=== PATIENT | male | born 1975 | race Caucasian/White ===

== ENCOUNTER → 2017-11-15 09:39 | Outpatient (CLI) | payer OTHER, SELFPAY ==
--- NOTE | 2017-11-15 09:42 | XR_ITS ---
XR ankle LT min 3V HISTORY: ITS.REASON: L ankle pain ORDERING PHYSICIAN: William Mccord PATIENT AGE: 42 years Comparison: None FINDINGS: No fracture or dislocation. No lytic or blastic change. There is normal mineralization.. The joint spaces are well-preserved. No significant degenerative/arthritic changes. No erosive changes evident. IMPRESSION: Negative ankle, no acute finding
== END ==
PROVIDERS: PCP Emergency Medicine; Visit Provider Nurse Practitioner Family
DX: M25.472 Effusion, left ankle (principal); M25.572 Pain in left ankle and joints of left foot
CPT/HCPCS: 73610

== ENCOUNTER → 2018-05-09 13:21 | Outpatient (CLI) | payer OTHER, SELFPAY ==
[2018-05-09 13:37] LABS: Basophils % 0.9 % (0.1-2.0); Eosinophils # 0.1 K/mm3 (0.0-0.4); Eosinophils % 2.8 % (0.1-12.0); Hematocrit 52.7 % (42.0-52.0); Hemoglobin 17.9 g/dL (14.1-18.0); Lymphocytes % 41.1 % (10-50); Mean Corpuscular HGB Conc 33.9 g/dL (31.8-35.4); Mean Corpuscular Hemoglobin 32.6 pg (27.0-31.2); Mean Corpuscular Volume 96.1 fl (80-94); Mean Platelet Volume 7.8 fl (7.4-10.4); Monocytes # 0.4 K/mm3 (0.1-1.0); Monocytes % 8.7 % (1.7-9.3); Neutrophils # 2.3 K/mm3 (1.8-7.8); Neutrophils % 46.5 % (37.0-80.0); Platelet Count 244 K/mm3 (142-424); Red Blood Count 5.48 M/mm3 (4.60-6.20); Red Cell Distribution Width 13.5 % (11.5-17.5); White Blood Count 4.8 K/mm3 (4.8-10.8)
[2018-05-09 14:07] LABS: Alanine Aminotransferase 37 U/L (12-78); Albumin/Globulin Ratio 1.3 (1.1-1.8); Alkaline Phosphatase 71 U/L (46-116); Anion Gap 12.3 mEq/L (5-15); Aspartate Amino Transferase 23 U/L (15-37); Bilirubin,Total 0.6 mg/dL (0.2-1.0); Blood Urea Nitrogen 15 mg/dL (7-18); Calcium 9.4 mg/dL (8.5-10.1); Carbon Dioxide 30 mmol/L (21.0-32.0); Chloride 103 mmol/L (98-107); Chol/HDL Ratio 3.2 (1-3.5); Cholesterol 151 mg/dL (140-200); Creatinine,Serum 1.08 mg/dL (0.70-1.30); Estimated Glomerular Filt Rate 75 ml/min (>60); GFR (African American) 91 ML/MIN (>60); Globulin 3.2 gm/dl (1.3-3.2); Glucose 98 mg/dL (74-106); HDL Cholesterol 47 mg/dL (27-67); LDL Cholesterol 97 mg/dL (0-130); Potassium 4.3 mmoL/L (3.5-5.1); Sodium 141 mmol/L (136-145); T4 (Thyroxine) 9.2 ug/dl (4.7-13.3); Thyroid Stimulating Hormone 1.62 uIU/ml (0.358-3.740); Total Protein,Serum 7.2 gm/dL (6.4-8.2); Triglycerides 35 mg/dL (30-200); VLDL Cholesterol 7 mg/dL (0-40)
[2018-05-10 07:55] LABS: Vitamin D 25 Hydroxy 26.2 ng/mL (30.0-100.0)
[2018-05-10 08:46] LABS: Vitamin B12 1262 pg/mL (232-1245)
[2018-05-12 08:48] LABS: Testosterone,Free 7.3 pg/mL (6.8-21.5)
== END ==
PROVIDERS: Visit Provider Physician Assistant
DX: R53.83 Other fatigue (principal); E55.9 Vitamin D deficiency, unspecified
CPT/HCPCS: 80053; 80061; 82607; 82652; 84402; 84436; 84443; 85025

== ENCOUNTER 2020-04-17 17:49 | Emergency (ER) | payer MEDICAID, SELFPAY ==
[2020-04-17 17:50] VITALS: BP 136/80; PULSE 69; RESP 19; TEMP 36.8; O2SAT 98; BMI 34.4
--- NOTE | 2020-04-17 18:11 | HMH.EDUTC ---
[facility] [place]ression: Abscess Disposition: Home, Self-Care Condition on Discharge: Good Instructions: Trimethoprim/Sulfamethoxazole (Alternative Therapy), Mupirocin, DI for Skin Abscess Additional Instructions: *Start antibiotic(s) immediately and be sure to take as ordered for the FULL length of time although you may be feeling better or start to see improvement in the next 24-48 hours *Monitor closely. Outlined redness so that you can monitor easier. Follow up immediately for new or worsening symptoms including but not limited to redness, swelling, streaking from site fever or chills. *Warm compress 15 minutes 3-4 times day *Never squeeze or pop these on your own. Seek immediate medical attention next time this occurs *Monitor Temp. Tylenol every 4 hours as needed and ibuprofen every 6 hours as needed (as long as your primary care doctor has told you that it is ok to take both. For fever, aches, pain. ER if no less that 101 despite Tylenol and ibuprofen Follow up with your family doctor/primary care physician in the next 48-72 hours if no improvement Wound culture was obtained and should be back in 48 hours make sure to follow up or call back to the [facility] to make sure that you are on correct medication Return if needed Straight to ER if any life threatening symptoms Prescriptions: Sulfamethoxazole/Trimethoprim [Bactrim DS tablet] 1 each PO BID 10 Days #20 tab Transmission Status: Pending to [facility] Mupirocin Calcium [Mupirocin 2% Cream 15gm] 1 applicatio TP TID 10 Days #1 tube Transmission Status: Pending to [facility] Referrals: Ashley Hutchinson PA [Primary Care Provider] - As needed Time of Disposition: 18:20 Medical Decision Making - Maynor Inquiry Pt receiving controlled substance: No Maynor was queried for this patient: No Vital Signs: 04/17/20 17:50 Temperature 98.2 F Temperature Source Oral Pulse Rate [Right Brachial] 69 Respiratory Rate 19 Blood Pressure [Right Arm] 136/80 Blood Pressure Mean [Right Arm] 98 Blood Pressure Source [Right Arm] Automatic Cuff Blood Pressure Position [Right Arm] Sitting 02 Sat by Pulse Oximetry 98 Oxygen Delivery Method Room Air Orders (Tests/Meds): ED MEDICATIONS Discontinued Medications Generic Name Dose Route Start Last Admin Trade Name Freq PRN Reason Stop Dose Admin Trimethoprim/Sulfamethoxazole 1 each 04/17/20 18:21 Sulfa/Trimethoprim 1 Tablet PO 04/17/20 18:22 ONCE ONE Protocol ORDERS Category Date Time Status Wound Culture and Gram Stain Stat Micro 04/17/20 18:19 [place] [facility] [place] - General Stated complaint: spot on stomach infected Time Seen by Provider: 04/17/20 18:11 Mode of Arrival: Ambulatory Source of Information: Patient Limitations: No Limitations Description of Symptoms (Recalled from Triage Doc. by RN): PATIENT C/O SORE ON ABDOMEN X 3 WEEKS HEENT Symptoms (Recalled from RN notes): No Resp Symptoms (Recalled from RN notes): No Skin Symptoms (Recalled from RN notes): Yes MS Symptoms (Recalled from RN notes): No Functional Status (Recalled from RN notes): wnl - History of Present Illness Provider Complaint: Patient states that he had a spot on his stomach for about a week States that he popped it last night and go some pus out of it but today it looked bigger and was red so he came in to get it checked - Related Data Previous Rx's Medication Instructions Recorded Mupirocin Calcium [Mupirocin 2% 1 applicatio TP TID 10 Days #1 tube 04/17/20 Cream 15gm] Sulfamethoxazole/Trimethoprim 1 each PO BID 10 Days #20 tab 04/17/20 [Bactrim DS tablet] Allergies Allergy/AdvReac Type Severity Reaction Status Date / Time Penicillins [PENICILLINS] Allergy Severe THROAT Verified 07/27/19 10:35 SWELLING - Worker's Comp Is this a Worker's Comp case?: No [facility] History - Hepatitis A Screen Drug use history?: No High risk sexual behaviors?: No Histo
[2020-04-17 18:23] VITALS: BP 136/80; PULSE 69; RESP 19; TEMP 36.8; O2SAT 98
== END 2020-04-17 18:25 | disposition home or self-care (01) ==
PROVIDERS: Emergency Provider Nurse Practitioner; PCP Physician Assistant
DX: L02.211 Cutaneous abscess of abdominal wall (principal); Z88.0 Allergy status to penicillin; F17.210 Nicotine dependence, cigarettes, uncomplicated
CPT/HCPCS: 87070; 87077; 87186; 87205; 99202; G0463

== ENCOUNTER 2020-06-10 18:32 | Emergency (ER) | payer MEDICAID, SELFPAY ==
--- NOTE | 2020-06-10 18:50 | ECG_ITS ---
APPROVED REPORT Exam: Resting ECG HR:65 bpm ECG Measurements Heart Rate 65 AXES VT 132 P 18 QRSd 98 QRS 1 QT 388 T 52 QTc 403 Conclusion Normal sinus rhythm Normal ECG Electronically signed by : Jimmie Fonseca, 06/11/2020 17:34:50
[2020-06-10 18:56] VITALS: BP 137/83; PULSE 67; RESP 18; TEMP 36.8; O2SAT 97; BMI 30.8
--- NOTE | 2020-06-10 18:56 | HMH.EDGENADL ---
ED Disposition Clinical Impression: Seizure-like activity Headache Qualifiers: Headache type: unspecified Headache chronicity pattern: episodic headache Intractability: not intractable Qualified Code(s): R51.9 - Headache, unspecified Disposition: Home, Self-Care Condition on Discharge: Good Instructions: DI for Headache Additional Instructions: Follow-up with neurology, Dr. Adhikari. Call for appointment. You can see Dr. Geller in the office tomorrow at 10 AM or 1 PM. Additional instructions for HEADACHE: See your physician as soon as possible for further evaluation. Return immediately if worsening headache, vomiting, problems with vision or speech, fever, numbness or weakness of the extremities, neck pain or stiffness. Referrals: Ashley Hutchinson PA [Primary Care Provider] - - Critical Care Critical Care Time: No Attestation: On 06/10/20, the high probability of a clinically significant, sudden or life threatening deterioration of the following system(s) required my full and direct attention, intervention and personal management. The time I documented below is in addition to time spent performing reported procedures but includes the following listed in this critical care notation. Medical Decision Making - Maynor Inquiry Pt receiving controlled substance: No Vital Signs: 06/10/20 18:56 Temperature 98.3 F Temperature Source Oral Pulse Rate [Right] 67 Respiratory Rate 18 Blood Pressure [Right Arm] 137/83 Blood Pressure Mean [Right Arm] 101 02 Sat by Pulse Oximetry 97 Oxygen Delivery Method Room Air - Lab Data Lab Results 06/10/20 19:35: WBC 8.3, RBC 5.39, Hgb 17.5, Hct 51.0, MCV 94.5 H, MCH 32.5 H, MCHC 34.4, RDW 13.9, Plt Count 269, MPV 7.1 L, Neut % (Auto) 51.4, Lymph % (Auto) 38.6, [place] % (Auto) 6.9, Eos % (Auto) 2.3, Baso % (Auto) 0.7, Neut # (Auto) 4.3, Lymph # (Auto) 3.2, [place] # (Auto) 0.6, Eos # (Auto) 0.2, Baso # (Auto) 0.1 06/10/20 19:35: Sodium 138, Potassium 3.8, Chloride 104, Carbon Dioxide 26, Anion Gap 11.8, BUN 14, Creatinine 1.00, Estimated Creat Clear 129, Estimated GFR 81, Est GFR ( Amer) 98, Glucose 99, Calcium 9.6, Total Bilirubin 0.4, AST 35, ALT 32, Alkaline Phosphatase 69, Troponin I < 0.01, Total Protein 7.3, Albumin 4.5, Globulin 2.8, Albumin/Globulin Ratio 1.6 Result diagrams: 06/10/20 19:35 06/10/20 19:35 Orders (Tests/Meds): ED MEDICATIONS Discontinued Medications Generic Name Dose Route Start Last Admin Trade Name Freq PRN Reason Stop Dose Admin Ketorolac Tromethamine 30 mg 06/10/20 19:11 06/10/20 19:32 Ketorolac 30mg/Ml Vial IV 06/10/20 19:12 30 mg ONCE ONE Administration ORDERS Category Date Time Status CT head/brain wo con Stat Cat Scan 06/10/20 19:09 Taken Chest XR 2 view (NOT portable) [XR chest 2V] Stat Exams 06/10/20 19:10 Taken Troponin I Q3H Lab 06/10/20 22:15 Ordered Troponin I Q3H Lab 06/11/20 01:15 Ordered - Radiology Data #1 Image(s): Chest Image Reviewed: Yes I reviewed the patient's radiology image Preliminary Findings: Normal/NAD - CT Data CT Scan: Head Time Received: 19:54 ([facility] fax) ED CT Reviewed: Yes: I have viewed the radiologist's interpretation Preliminary Findings: Normal/NAD - ECG Data Tracing #1 EKG interpreted by Roderick Chance MD: Rhythm: sinus Rate: 65 [place]: normal Ectopy: none Conduction: normal ST Segment Changes: none T Wave Changes: none Q Waves: none No evidence of acute ischemia or injury Normal electrocardiogram - Reevaluation(s) Time: 20:16 Reevaluation #1: States he still has a headache. Slight improvement with Toradol, but declines any additional pain medication. Does not want any prescriptions for pain medication at discharge, says he will take [id number] medicines. General Adult HPI - General Stated complaint: barger, NOT FEELING GOOD Time Seen by Provider: 06/10/20 19:05 - History of Present Illness HPI narrative: Complain
--- NOTE | 2020-06-10 19:09 | CT_ITS ---
PROCEDURE: CT HEAD/BRAIN WO CON CLINICAL INDICATION: headache, seizure-like episodes COMPARISON: No exams were available for comparison TECHNIQUE: Axial images obtained. All CT scans at the facility use one or more dose reduction, viz: automated exposure control, ma/kV adjustment per patient size (including targeted exams where dose is matched to indication, i.e. head), or iterative reconstruction technique. FINDINGS: No midline shift, mass effect, intracranial hemorrhage, hydrocephalus, or extra-axial fluid collection is evident. The calvarium has an unremarkable appearance. No mastoid effusion. No sinus air-fluid level. IMPRESSION: No acute intracranial finding Dictated by: Jarad Fabian MD 06/11/2020 06:42 Jarad Fabian MD in [place] 06/11/2020 06:42
--- NOTE | 2020-06-10 19:10 | XR_ITS ---
PROCEDURE: XR CHEST 2V CLINICAL HISTORY: L periscapular pain COMPARISON: No exams were available for comparison FINDINGS: The cardiomediastinal silhouette and pulmonary vascularity are within normal limits. The lungs are clear without infiltrates, suspicious nodules, or pleural effusions. No acute bony abnormalities. IMPRESSION: No acute findings. Dictated by: Jarad Fabian MD 06/11/2020 06:03 Jarad Fabian MD in [place] 06/11/2020 06:03
[2020-06-10 20:00] LABS: Basophils # 0.1 K/mm3 (0-0.2); Basophils % 0.7 % (0.1-2.0); Eosinophils # 0.2 K/mm3 (0.0-0.4); Eosinophils % 2.3 % (0.1-12.0); Hemoglobin 17.5 g/dL (14.1-18.0); Lymphocytes # 3.2 K/mm3 (0.7-4.5); Lymphocytes % 38.6 % (10-50); Mean Corpuscular HGB Conc 34.4 g/dL (31.8-35.4); Mean Corpuscular Hemoglobin 32.5 pg (27.0-31.2); Mean Corpuscular Volume 94.5 fl (80-94); Mean Platelet Volume 7.1 fl (7.4-10.4); Monocytes # 0.6 K/mm3 (0.1-1.0); Monocytes % 6.9 % (1.7-9.3); Neutrophils # 4.3 K/mm3 (1.8-7.8); Neutrophils % 51.4 % (37.0-80.0); Platelet Count 269 K/mm3 (142-424); Red Blood Count 5.39 M/mm3 (4.60-6.20); Red Cell Distribution Width 13.9 % (11.5-17.5); White Blood Count 8.3 K/mm3 (4.8-10.8)
[2020-06-10 20:07] LABS: Chloride 104 mmol/L (98-107); Sodium 138 mmol/L (136-145)
[2020-06-10 20:08] LABS: Potassium 3.8 mmoL/L (3.5-5.1)
[2020-06-10 20:10] LABS: Alanine Aminotransferase 32 U/L (12-78); Albumin Level 4.5 g/dl (3.5-5.0); Albumin/Globulin Ratio 1.6 (1.1-1.8); Alkaline Phosphatase 69 U/L (38-126); Anion Gap 11.8 mEq/L (5-15); Aspartate Amino Transferase 35 U/L (17-59); Bilirubin,Total 0.4 mg/dl (0.2-1.3); Blood Urea Nitrogen 14 mg/dl (9-20); Carbon Dioxide 26 mmol/L (22.0-30.0); Creatinine Clearance Estimated 129 mL/min (50-200); Estimated Glomerular Filt Rate 81 ml/min (>60); GFR (African American) 98 ML/MIN (>60); Globulin 2.8 g/dL (1.3-3.2); Total Protein,Serum 7.3 g/dl (6.3-8.2)
[2020-06-10 20:11] LABS: Calcium 9.6 mg/dl (8.4-10.2); Glucose 99 mg/dl (74-100)
[2020-06-10 20:30] LABS: Troponin I < 0.01 ng/ml (0.00-0.034)
[2020-06-10 20:38] VITALS: BP 132/78; PULSE 72; RESP 17; TEMP 36.8; O2SAT 99
== END 2020-06-10 20:46 | disposition home or self-care (01) ==
LOC: UTC 18:36 → ER 18:47
PROVIDERS: Emergency Provider Emergency Medicine; PCP Physician Assistant
DX: R56.9 Unspecified convulsions (principal); R51.9 Headache, unspecified; M54.6 Pain in thoracic spine; F17.210 Nicotine dependence, cigarettes, uncomplicated
CPT/HCPCS: 70450; 71046; 80053; 84484; 85025; 93005; 96374; 96375; 99282

== ENCOUNTER → 2020-06-25 13:26 | Outpatient (CLI) | payer MEDICAID, SELFPAY ==
--- NOTE | 2020-06-25 13:26 | MR_ITS ---
PROCEDURE: MR HEAD/BRAIN WO CON CLINICAL INDICATION: headache COMPARISON: No exams were available for comparison TECHNIQUE: Routine multiplanar multi echo sequences are performed without gadolinium enhancement. FINDINGS: No midline shift, mass effect, intracranial hemorrhage, or hydrocephalus is evident. The cerebellopontine angles, cerebellum, and mid brain have an unremarkable appearance. There are a few small punctate T2 white matter hyperintensities in the frontal lobes, parietal lobes, and left occipital lobe. These are nonspecific and may be due to ischemic gliotic foci or migraine headache. The pituitary, optic chiasm, corpus callosum, and craniocervical junction have an unremarkable appearance. No mastoid effusion or sinus air-fluid level. IMPRESSION: 1. No acute intracranial findings. 2. Nonspecific scattered T2 white matter hyperintensities which may be due to small gliotic foci versus migraine headache. Demyelinating process felt to be less likely due to distribution and morphological appearance Dictated by: Jarad Fabian MD 06/25/2020 18:02 Jarad Fabian MD in [place] 06/25/2020 18:02
== END ==
PROVIDERS: PCP Physician Assistant; Visit Provider Physician Assistant
DX: R51.9 Headache, unspecified (principal); R56.9 Unspecified convulsions
CPT/HCPCS: 70551; 95806

== ENCOUNTER → 2020-06-28 09:28 | Outpatient (CLI) | payer MEDICAID, SELFPAY ==
[2020-06-28 09:40] LABS: Basophils # 0.1 K/mm3 (0-0.2); Basophils % 0.9 % (0.1-2.0); Eosinophils # 0.2 K/mm3 (0.0-0.4); Eosinophils % 2.8 % (0.1-12.0); Hematocrit 52.6 % (42.0-52.0); Hemoglobin 17.5 g/dL (14.1-18.0); Mean Corpuscular HGB Conc 33.3 g/dL (31.8-35.4); Mean Corpuscular Hemoglobin 32.2 pg (27.0-31.2); Mean Corpuscular Volume 96.7 fl (80-94); Mean Platelet Volume 7.1 fl (7.4-10.4); Monocytes # 0.5 K/mm3 (0.1-1.0); Monocytes % 8.9 % (1.7-9.3); Neutrophils # 3.2 K/mm3 (1.8-7.8); Neutrophils % 53.3 % (37.0-80.0); Platelet Count 259 K/mm3 (142-424); Red Blood Count 5.43 M/mm3 (4.60-6.20); Red Cell Distribution Width 13.2 % (11.5-17.5)
[2020-06-28 10:32] LABS: Alanine Aminotransferase 32 U/L (12-78); Albumin Level 4.4 g/dl (3.5-5.0); Albumin/Globulin Ratio 1.7 (1.1-1.8); Alkaline Phosphatase 77 U/L (38-126); Anion Gap 11.6 mEq/L (5-15); Aspartate Amino Transferase 30 U/L (17-59); Bilirubin,Total 0.7 mg/dl (0.2-1.3); Blood Urea Nitrogen 14 mg/dl (9-20); Calcium 9.5 mg/dl (8.4-10.2); Carbon Dioxide 27 mmol/L (22.0-30.0); Chloride 105 mmol/L (98-107); Chol/HDL Ratio 3.9 (1-3.5); Cholesterol 157 mg/dl (140-200); Estimated Glomerular Filt Rate 81 ml/min (>60); GFR (African American) 98 ML/MIN (>60); Globulin 2.6 g/dL (1.3-3.2); Glucose 92 mg/dl (74-100); HDL Cholesterol 40 mg/dl (40-60); Potassium 4.6 mmoL/L (3.5-5.1); Sodium 139 mmol/L (136-145); Triglycerides 81 mg/dl (30-150); VLDL Cholesterol 16 mg/dL (0-40)
[2020-06-28 10:44] LABS: Direct LDL Cholesterol 103.12 mg/dL (100-129)
[2020-06-28 10:50] LABS: 25-OH Vitamin D, Total 36.4 ng/mL (30-100); T4 (Thyroxine) 10.6 ug/dl (5.53-11.0)
[2020-06-28 11:04] LABS: Thyroid Stimulating Hormone 1.41 uIU/mL (0.465-4.68)
[2020-06-28 11:22] LABS: Vitamin B12 968 pg/mL (239-931)
== END ==
PROVIDERS: Visit Provider Physician Assistant
DX: R51.9 Headache, unspecified (principal); R56.9 Unspecified convulsions; Z68.34 Body mass index [BMI] 34.0-34.9, adult
CPT/HCPCS: 36415; 80053; 80061; 82306; 82607; 84436; 84443; 85025

== ENCOUNTER → 2020-08-13 16:16 | Outpatient (CLI) | payer MEDICAID, SELFPAY | PROVIDERS: Visit Provider Specialist | DX: Z01.812 Encounter for preprocedural laboratory examination (principal); Z11.52 Encounter for screening for COVID-19 | CPT/HCPCS: U0003 ==

== ENCOUNTER → 2020-08-13 20:06 | Outpatient (CLI) | payer MEDICAID, SELFPAY | PROVIDERS: PCP Physician Assistant; Visit Provider Specialist | DX: G47.30 Sleep apnea, unspecified (principal); R51.9 Headache, unspecified; R56.9 Unspecified convulsions; E66.9 Obesity, unspecified; Z68.34 Body mass index [BMI] 34.0-34.9, adult | CPT/HCPCS: 95810 ==

== ENCOUNTER → 2020-08-26 11:49 | Outpatient (CLI) | payer MEDICAID, SELFPAY ==
[2020-09-05 08:43] LABS: AChR Binding Abs <.03; AChR Blocking Abs 18
[2020-09-05 08:44] LABS: Anti-Striation (muscle) Abs NEGATIVE
== END ==
PROVIDERS: Specialist; Visit Provider Nurse Practitioner Family
DX: R51.9 Headache, unspecified (principal); H53.8 Other visual disturbances
CPT/HCPCS: 36415; 84238; 86255; 86618

== ENCOUNTER → 2020-11-04 18:46 | Outpatient (CLI) | payer MEDICAID, SELFPAY ==
[2020-11-04 20:06] LABS: Uric Acid 4.8 mg/dl (3.5-8.5)
== END ==
PROVIDERS: Visit Provider Nurse Practitioner Family
DX: M79.676 Pain in unspecified toe(s) (principal)
CPT/HCPCS: 84550

== ENCOUNTER → 2021-02-03 10:57 | Outpatient (CLI) | payer MEDICAID, SELFPAY ==
[2021-02-03 11:27] LABS: Basophils % 0.6 % (0.1-2.0); Eosinophils # 0.2 K/mm3 (0.0-0.4); Eosinophils % 2.4 % (0.1-12.0); Hematocrit 51.3 % (42.0-52.0); Lymphocytes # 2.6 K/mm3 (0.7-4.5); Lymphocytes % 34.3 % (10-50); Mean Corpuscular HGB Conc 35.4 g/dL (31.8-35.4); Mean Corpuscular Volume 96.2 fl (80-94); Mean Platelet Volume 7.3 fl (7.4-10.4); Monocytes # 0.6 K/mm3 (0.1-1.0); Monocytes % 7.6 % (1.7-9.3); Neutrophils # 4.3 K/mm3 (1.8-7.8); Neutrophils % 55.2 % (37.0-80.0); Platelet Count 225 K/mm3 (142-424); Red Blood Count 5.33 M/mm3 (4.60-6.20); Red Cell Distribution Width 12.9 % (11.5-17.5); White Blood Count 7.7 K/mm3 (4.8-10.8)
[2021-02-03 12:17] LABS: Hemoglobin 18.2 g/dL (14.1-18.0)
== END ==
PROVIDERS: Visit Provider Nurse Practitioner Family
DX: R51.9 Headache, unspecified (principal); F39 Unspecified mood [affective] disorder; R41.3 Other amnesia
CPT/HCPCS: 36415; 85025

== ENCOUNTER → 2021-02-23 09:51 | Outpatient (CLI) | payer MEDICAID, SELFPAY ==
[2021-02-23 11:18] LABS: Alanine Aminotransferase 27 U/L (12-78); Albumin Level 4.3 g/dl (3.5-5.0); Albumin/Globulin Ratio 1.7 (1.1-1.8); Alkaline Phosphatase 59 U/L (38-126); Anion Gap 9.5 mEq/L (5-15); Aspartate Amino Transferase 25 U/L (17-59); Bilirubin,Total 0.5 mg/dl (0.2-1.3); Blood Urea Nitrogen 15 mg/dl (9-20); Calcium 9.7 mg/dl (8.4-10.2); Carbon Dioxide 33 mmol/L (22.0-30.0); Chloride 99 mmol/L (98-107); Estimated Glomerular Filt Rate 72 ml/min (>60); GFR (African American) 88 ML/MIN (>60); Globulin 2.6 g/dL (1.3-3.2); Glucose 101 mg/dl (74-100); Potassium 4.5 mmoL/L (3.5-5.1); Sodium 137 mmol/L (136-145); Total Protein,Serum 6.9 g/dl (6.3-8.2)
[2021-02-23 11:23] LABS: Valproic Acid, (Depakene) 52.7 ug/ml (50-100)
== END ==
PROVIDERS: Visit Provider Nurse Practitioner Family
DX: R51.9 Headache, unspecified (principal); R56.9 Unspecified convulsions
CPT/HCPCS: 36415; 80053; 80164

== ENCOUNTER → 2021-04-30 13:33 | Outpatient (CLI) | payer MEDICAID, SELFPAY ==
[2021-04-30 18:10] LABS: Chloride 101 mmol/L (98-107); Potassium 3.9 mmoL/L (3.5-5.1); Sodium 133 mmol/L (136-145)
[2021-04-30 18:13] LABS: Alanine Aminotransferase 28 U/L (12-78); Albumin Level 4.3 g/dl (3.5-5.0); Albumin/Globulin Ratio 1.7 (1.1-1.8); Alkaline Phosphatase 65 U/L (38-126); Anion Gap 11.9 mEq/L (5-15); Aspartate Amino Transferase 26 U/L (17-59); Bilirubin,Total 0.3 mg/dl (0.2-1.3); Blood Urea Nitrogen 17 mg/dl (9-20); Calcium 8.6 mg/dl (8.4-10.2); Carbon Dioxide 24 mmol/L (22.0-30.0); Chol/HDL Ratio 5.1 (1-3.5); Cholesterol 164 mg/dl (140-200); Estimated Glomerular Filt Rate 91 ml/min (>60); GFR (African American) 110 ML/MIN (>60); Globulin 2.6 g/dL (1.3-3.2); Glucose 80 mg/dl (74-100); HDL Cholesterol 32 mg/dl (40-60); Total Protein,Serum 6.9 g/dl (6.3-8.2); Triglycerides 125 mg/dl (30-150); VLDL Cholesterol 25 mg/dL (0-40)
[2021-04-30 18:19] LABS: Basophils # 0.1 K/mm3 (0-0.2); Basophils % 0.7 % (0.1-2.0); Eosinophils # 0.1 K/mm3 (0.0-0.4); Eosinophils % 1.2 % (0.1-12.0); Hematocrit 54.4 % (42.0-52.0); Hemoglobin 17.7 g/dL (14.1-18.0); Lymphocytes # 2.7 K/mm3 (0.7-4.5); Mean Corpuscular HGB Conc 32.5 g/dL (31.8-35.4); Mean Corpuscular Hemoglobin 32.6 pg (27.0-31.2); Mean Corpuscular Volume 100.1 fl (80-94); Monocytes # 0.6 K/mm3 (0.1-1.0); Monocytes % 5.2 % (1.7-9.3); Neutrophils # 7.3 K/mm3 (1.8-7.8); Neutrophils % 67.9 % (37.0-80.0); Platelet Count 243 K/mm3 (142-424); Red Blood Count 5.43 M/mm3 (4.60-6.20); Red Cell Distribution Width 13.6 % (11.5-17.5); White Blood Count 10.8 K/mm3 (4.8-10.8)
[2021-04-30 18:24] LABS: Direct LDL Cholesterol 119.28 mg/dL (100-129)
[2021-04-30 18:31] LABS: 25-OH Vitamin D, Total 25.4 ng/mL (30-100)
[2021-04-30 18:44] LABS: Thyroid Stimulating Hormone 1.39 uIU/mL (0.465-4.68)
[2021-04-30 20:25] LABS: Prostate Specific Ag Screen 0.5 ng/ml (0.0-4.0)
[2021-04-30 20:43] LABS: Vitamin B12 836 pg/mL (239-931)
== END ==
PROVIDERS: Visit Provider Physician Assistant
DX: R53.83 Other fatigue (principal); R56.9 Unspecified convulsions; Z12.5 Encounter for screening for malignant neoplasm of prostate; E55.9 Vitamin D deficiency, unspecified
CPT/HCPCS: 80053; 80061; 82306; 82607; 84443; 85025; G0103

== ENCOUNTER → 2021-08-18 09:23 | Outpatient (CLI) | payer MEDICAID, SELFPAY ==
[2021-08-19 08:19] LABS: Testosterone,Total 949 ng/dL (264-916)
== END ==
PROVIDERS: PCP Physician Assistant; Visit Provider Physician Assistant
DX: Z12.5 Encounter for screening for malignant neoplasm of prostate (principal)
CPT/HCPCS: 36415; 84403

== ENCOUNTER 2021-09-07 19:00 | Emergency (ER) | payer MEDICAID, SELFPAY ==
--- NOTE | 2021-09-07 19:07 | XR_ITS ---
PROCEDURE INFORMATION: Exam: XR Left Foot Exam date and time: 09/07/2021 7:15 PM Age: 46 years old Clinical indication: Injury or trauma; Other: Jammed toes; Blunt trauma; Left lesser toe(s); Additional info: Jammed toes in door TECHNIQUE: Imaging protocol: Radiologic exam of the Left foot. Views: 3 or more views. COMPARISON: CR XR FOOT LT 2V 09/29/2018 6:21 PM FINDINGS: Bones/joints: Suspected nondisplaced spiral fracture of the mid shaft of the proximal phalanx of the 4th ray. Soft tissues: No radiopaque foreign body. IMPRESSION: Suspected nondisplaced spiral fracture of the mid shaft of the proximal phalanx of the 4th ray.
[2021-09-07 19:20] VITALS: BP 132/76; PULSE 62; RESP 18; TEMP 36.8; O2SAT 98; BMI 32.3
--- NOTE | 2021-09-07 19:51 | HMH.EDUTC ---
[facility] [place]: Fracture of proximal phalanx of toe of left foot Disposition: Home, Self-Care Condition on Discharge: Good Instructions: DI for Toe Fracture, Toe Fracture, How To Perform RICE (Rest, Ice, Compress, Elevate), Ibuprofen Additional Instructions: *weight bearing as tolerated *RICE, Rest the extremity, Ice 15-20 minutes 3-4 times daily, Compress- wear the glendy wrap as discussed as much as possible to help reduce swelling and pain, Elevate the extremity when at rest *Post op Shoe is for support and help control swelling, use it except in the shower. Be sure that is not to tight but not to loose either *Elevate when resting *Over the counter Ibuprofen 600-800mg every 6-8 hours as needed for pain an inflammation. If need something more can take Tylenol in between doses of Ibuprofen to help Immediately follow up with your family doctor for new or worsening of symptoms, or no noticeable improvement over the next 3-5 days You can call back tomorrow morning after 8am for the official reading of your xray Follow up with Podiatry or Orthopedics if pain continues Return if needed Referrals: Ashley Hutchinson PA [Primary Care Provider] - As needed Hever Metzger MD [Staff Physician] - Lorenza Thomas DPM [Staff Physician] - Time of Disposition: 20:07 Medical Decision Making - Maynor Inquiry Pt receiving controlled substance: No Maynor was queried for this patient: No Vital Signs: 09/07/21 19:20 Temperature 98.2 F Temperature Source Oral Pulse Rate [Right Brachial] 62 Respiratory Rate 18 Blood Pressure [Right Arm] 132/76 Blood Pressure Mean [Right Arm] 94 Blood Pressure Source [Right Arm] Automatic Cuff Blood Pressure Position [Right Arm] Sitting 02 Sat by Pulse Oximetry 98 Oxygen Delivery Method Room Air Orders (Tests/Meds): ORDERS Category Date Time Status XR foot LT min 3V Stat Exams 09/07/21 19:07 Taken - Radiology Data #1 Image(s): Foot/Toes Image Reviewed: Yes I reviewed the patient's radiology image Fracture of proximal phalanx 4th toe [facility] [place] - General Stated complaint: AO 6/16 l Time Seen by Provider: 09/07/21 19:51 Mode of Arrival: Ambulatory Source of Information: Patient Limitations: No Limitations Description of Symptoms (Recalled from Triage Doc. by RN): PATIENT C/O INJURY TO LEFT TOES AFTER HE JAMMED HIS FOOT IN A DOOR ON TUESDAY HEENT Symptoms (Recalled from RN notes): No Resp Symptoms (Recalled from RN notes): No Skin Symptoms (Recalled from RN notes): No MS Symptoms (Recalled from RN notes): Yes Functional Status (Recalled from RN notes): WNL - History of Present Illness Provider Complaint: Patient states that he was walking through the house when he accidently kicked the door frame with his left foot hitting his last three toes States that he has been having pain in the 4th toe that is shooting into his foot at time States that he was worried he may have broken a bone in the top of his foot so today he came in to get checked - Related Data Home Medications Medication Instructions Recorded Confirmed Fluoxetine HCl [Prozac] 20 mg PO DAILY 09/07/21 09/07/21 Previous Rx's Medication Instructions Recorded cholecalciferol (vitamin D3) 1,250 1,250 mcg PO WEEKLY #14 cap 05/06/21 mcg (50,000 unit) capsule cholecalciferol (vitamin D3) 25 25 mcg PO DAILY #90 cap 05/06/21 mcg (1,000 unit) capsule fremanezumab-vfrm 225 mg/1.5 mL 225 mg SQ QMONTH #1.5 ml 06/24/21 subcutaneous auto-injector mupirocin 2 % topical ointment 1 applic TP BID #22 g 08/12/21 cariprazine 1.5 mg capsule 1.5 mg PO DAILY #30 cap 08/27/21 Allergies Allergy/AdvReac Type Severity Reaction Status Date / Time Penicillins [PENICILLINS] Allergy Severe THROAT Verified 08/27/21 08:49 SWELLING - Worker's Comp Is this a Worker's Comp case?: No [facility] History - Hepatitis A Screen Attestation statement:: This patient has been screened for Hepatit
[2021-09-07 19:59] VITALS: BP 132/76; PULSE 62; RESP 18; TEMP 36.8; O2SAT 98
== END 2021-09-07 20:12 | disposition home or self-care (01) ==
PROVIDERS: Emergency Provider Nurse Practitioner; PCP Physician Assistant
DX: S92.532A Displaced fracture of distal phalanx of left lesser toe(s), initial encounter for closed fracture (principal); W22.09XA Striking against other stationary object, initial encounter
CPT/HCPCS: 73630; 99283

== ENCOUNTER → 2021-09-24 10:13 | Outpatient (CLI) | payer MEDICAID, SELFPAY ==
--- NOTE | 2021-09-24 10:20 | XR_ITS ---
FINAL REPORT CLINICAL HISTORY: PAIN, INJURY COMPARISON: September 07, 2021 FINDINGS: 3 weight-bearing views of the left foot were obtained. There is an oblique fracture of the 4th proximal phalanx with over riding of the fracture fragments. There is no significant callus formation. There are mild degenerative changes at the 1st MTP joint. IMPRESSION: Fracture of the 4th proximal phalanx without significant callus formation. Reviewed, Interpreted and Dictated by Fredy George III, MD Transcribed by Edward Arriaga Authenticated and [facility]
--- NOTE | 2021-09-24 10:20 | XR_ITS ---
FINAL REPORT CLINICAL HISTORY: PAIN FINDINGS: RIGHT FOOT: Three weight-bearing views of the right foot were obtained. There is no acute fracture or dislocation. There is mild degenerative change of the 1st MTP joint. There is a subchondral cyst in the 1st proximal phalanx. There is a small subchondral cyst in the head of the 1st metatarsal. There is no acute soft tissue abnormality. IMPRESSION: No acute bony abnormality. Reviewed, Interpreted and Dictated by Fredy George III, MD Transcribed by Edward Arriaga Authenticated and . [facility]
== END ==
PROVIDERS: PCP Physician Assistant; Visit Provider Podiatrist
DX: M79.671 Pain in right foot (principal); M79.672 Pain in left foot; S99.922D Unspecified injury of left foot, subsequent encounter; S92.515D Nondisplaced fracture of proximal phalanx of left lesser toe(s), subsequent encounter for fracture with routine healing
CPT/HCPCS: 73630

== ENCOUNTER → 2021-10-08 08:29 | Outpatient (CLI) | payer MEDICAID, SELFPAY ==
--- NOTE | 2021-10-08 08:31 | XR_ITS ---
FINAL REPORT CLINICAL HISTORY: pain COMPARISON: September 24, 2021 FINDINGS: LEFT FOOT: Three weight-bearing views of the left foot were obtained. Again noted is an oblique fracture of the 4th middle phalanx. There is callus formation at the fracture site. The joint spaces are intact. There is no soft tissue abnormality. IMPRESSION: Fracture of the 4th middle phalanx with increased callus formation. Reviewed, Interpreted and Dictated by Fredy George III, MD Transcribed by Adeline Childers Authenticated and [facility]
== END ==
PROVIDERS: PCP Physician Assistant; Visit Provider Podiatrist
DX: M79.672 Pain in left foot (principal)
CPT/HCPCS: 73630

== ENCOUNTER → 2022-01-04 20:00 | Outpatient (CLI) | payer MEDICAID, SELFPAY | PROVIDERS: PCP Physician Assistant; Visit Provider Nurse Practitioner Family | DX: G47.33 Obstructive sleep apnea (adult) (pediatric) (principal); R09.02 Hypoxemia; R40.0 Somnolence; R51.9 Headache, unspecified | CPT/HCPCS: 95810 ==

== ENCOUNTER → 2022-03-12 09:03 | Outpatient (CLI) | payer MEDICAID, SELFPAY ==
--- NOTE | 2022-03-12 09:05 | XR_ITS ---
FINAL REPORT CLINICAL HISTORY: Acute left hip pain. no trauma FINDINGS: AP and frog leg views of the left hip were obtained. There is no prior exam for comparison. There is no acute fracture or dislocation. Joint space is preserved. Soft tissues are within normal limits. IMPRESSION: No acute osseous abnormality of the left hip. If pain persists, MR is recommended. Reviewed, Interpreted and Dictated by Deidra Wright MD Transcribed by Haritha Cherry Authenticated and [facility]
== END ==
PROVIDERS: PCP Physician Assistant; Visit Provider Family Medicine
DX: M25.552 Pain in left hip (principal)
CPT/HCPCS: 73502

== ENCOUNTER → 2022-03-22 10:18 | Outpatient (CLI) | payer MEDICAID, SELFPAY ==
--- NOTE | 2022-03-22 10:18 | MR_ITS ---
FINAL REPORT CLINICAL HISTORY: Left Hip Pain, no trauma. PAIN WHEN WALKING. FINDINGS: Multiplanar MR imaging of the left hip was performed without contrast. There is no evidence of fracture or dislocation. There is no evidence of avascular necrosis. There is a small cyst in the anterior left femoral head. No labral tear is identified. No significant joint effusion is seen. There is a partial tear of the distal left gluteus medius with some adjacent fluid. There is a small partial tear of the distal right gluteus medius. There is a small intrasubstance tear at the origin of the left hamstring tendons. The musculature is intact. No soft tissue mass or cyst is identified. IMPRESSION: Partial tear of the distal left gluteus medius with adjacent fluid. Small intrasubstance tear of the left origin of the hamstring tendons. Small partial tear of the distal right gluteus medius. Reviewed, Interpreted and Dictated by Fredy George III, MD Transcribed by Edward Arriaga Authenticated and [facility]
== END ==
PROVIDERS: PCP Physician Assistant; Visit Provider Family Medicine
DX: M25.552 Pain in left hip (principal)
CPT/HCPCS: 73721

== ENCOUNTER 2022-04-07 10:00 | Outpatient (RCR) | payer MEDICAID, SELFPAY ==
--- NOTE | 2022-03-19 14:48 | HMH.PTOPEV ---
PT Outpatient Evaluation Rehab PT Outpatient Evaluation Start: 03/19/22 14:31 Freq: Status: Active Protocol: Document 03/19/22 14:32 SYLVIA (Rec: 03/19/22 14:48 SYLVIA [id number]) E-signed By Aryan Nunez, PT Outpatient Therapy Subjective History Subjective History Patient is a 46 year old male presenting to outpatient PT with reports of chronic L hip pain starting approximately 10 years ago. Symptoms of insidious onset and have progressively gotten worse over the past 2 months. Most recent imaging negative. SI special tests indicate R ant/L post rotation of the innominant. No other comorbidities to report. Chief Complaint Pain,Stiff Symptom Type Sharp,Shooting Symptoms Relieved By Nothing,Heat Symptoms Aggravated By Sitting,Standing,Physical Activity,Walking Prior Functional Limitations None Current Functional Limitations Housework,Sleeping,Standing, Sitting,Walking Symptom Description Intermittent Level of pain today (0-10) 5 Pain scale - at its best (0-10) 0 Pain scale - at its worst (0-10) 10 Lumbopelvic Eval Posture Thoracic Spine Posture Standing Position Increased Kyphosis Lumbar Spine Posture Standing Position Increased Lordosis Assistive device Assistive Devices None / NA Palapation tenderness left lumbar spinal tenderness Yes: L4/5, L5/S1 2/4 buttock tenderness Yes: 3/4 Lumbar/Sacral Palpation Findings Tenderness Accessory Movement L4 left L5 left S1 left Range of Motion Lumbar Spine Active Flexion Range of 85 Motion (degrees) Lumbar Spine Active Extension Range of 15 Motion (degrees) Left Lumbar Spine Lateral Flexion Active WNL Range of Motion (degrees) Right Lumbar Spine Lateral Flexion WNL Active Range of Motion (degrees) Lumbar Spine ROM Limitations Soft Tissue Tightness Manual Muscle Test Bilateral Knee Extension Strength Grade 5 Normal Knee Flexion Strength Grade 5 Normal Hip Flexion Strength Grade 5 Normal Extensor Hallucis Longus Strength Grade 5 Normal Ankle Dorsiflexion Strength Grade 5 Normal Gastronemius/Soleus Strength Grade 5 Normal Special Tests Lumbar Spine Screen Positive Hip Matteo (QUIANA) Test Negative Right,Positive Left Hip Chace Test
== END 2022-04-07 10:05 | disposition home or self-care (01) ==
LOC: PT 10:00
PROVIDERS: PCP Physician Assistant; Visit Provider Family Medicine
DX: G57.00 Lesion of sciatic nerve, unspecified lower limb (principal)
CPT/HCPCS: 97110; 97163

== ENCOUNTER 2022-05-23 04:22 | Emergency (ER) | payer MEDICAID, SELFPAY ==
[2022-05-23 04:23] VITALS: BP 133/99; PULSE 98; RESP 26; TEMP 36.6; O2SAT 99; BMI 35.9
--- NOTE | 2022-05-23 04:44 | XR_ITS ---
PROCEDURE INFORMATION: Exam: XR Pelvis Exam date and time: 05/23/2022 5:06 AM Age: 47 years old Clinical indication: Injury or trauma; Fall; Additional info: Fall, pain TECHNIQUE: Imaging protocol: Radiologic exam of the pelvis. Views: 1 or 2 view. COMPARISON: CR XR HIP LT 2-3V W/PELVIS 03/12/2022 9:16 AM FINDINGS: Bones/joints: Unremarkable. No acute fracture. Soft tissues: Unremarkable. IMPRESSION: No acute findings.
--- NOTE | 2022-05-23 04:44 | CT_ITS ---
PROCEDURE INFORMATION: Exam: CT Thoracic Spine Without Contrast Exam date and time: 05/23/2022 5:02 AM Age: 47 years old Clinical indication: Injury or trauma; Fall; Additional info: Fall, pain right posterior TECHNIQUE: Imaging protocol: Computed tomography of the thoracic spine without contrast. Radiation optimization: All CT scans at this facility use at least one of these dose optimization techniques: automated exposure control; mA and/or kV adjustment per patient size (includes targeted exams where dose is matched to clinical indication); or iterative reconstruction. REPORTING DATA: Count of CT and Cardiac NM exams in prior 12 months: This patient has received 3 known CTs and 0 known cardiac nuclear medicine studies in the 12 months prior to the current study. COMPARISON: CT CERVICAL SPINE WO CON 05/23/2022 4:57 AM FINDINGS: Bones/joints: No acute fracture. Normal alignment. No significant disc bulge or herniation. No severe spinal canal stenosis. No significant neural foraminal narrowing. Soft tissues: Unremarkable. IMPRESSION: Unremarkable CT Spine.
--- NOTE | 2022-05-23 04:44 | CT_ITS ---
PROCEDURE INFORMATION: Exam: CT Chest With Contrast; Diagnostic Exam date and time: 05/23/2022 5:08 AM Age: 47 years old Clinical indication: Injury or trauma; Fall; Additional info: Fall, pain right posterior TECHNIQUE: Imaging protocol: Diagnostic computed tomography of the chest with contrast. Radiation optimization: All CT scans at this facility use at least one of these dose optimization techniques: automated exposure control; mA and/or kV adjustment per patient size (includes targeted exams where dose is matched to clinical indication); or iterative reconstruction. Contrast material: ISOVUE; Contrast volume: 75 ml; Contrast route: IV; REPORTING DATA: Count of CT and Cardiac NM exams in prior 12 months: This patient has received 3 known CTs and 0 known cardiac nuclear medicine studies in the 12 months prior to the current study. COMPARISON: CR XR CHEST PORTABLE 05/23/2022 5:06 AM FINDINGS: Lungs: Unremarkable. No consolidation. No masses. Pleural spaces: Unremarkable. No pneumothorax. No pleural effusion. Heart: Unremarkable. No cardiomegaly. No pericardial effusion. Coronary arteries: No coronary calcium noted. Lymph nodes: Unremarkable. No enlarged lymph nodes. Vasculature: Unremarkable. No aortic aneurysm. Bones/joints: Unremarkable. No acute fracture. Soft tissues: Unremarkable. IMPRESSION: No acute traumatic injury identified.
--- NOTE | 2022-05-23 04:44 | CT_ITS ---
PROCEDURE INFORMATION: Exam: CT Abdomen And Pelvis With Contrast Exam date and time: 05/23/2022 5:08 AM Age: 47 years old Clinical indication: Other: Fall; Additional info: Fall, pain right posterior TECHNIQUE: Imaging protocol: Computed tomography of the abdomen and pelvis with contrast. Radiation optimization: All CT scans at this facility use at least one of these dose optimization techniques: automated exposure control; mA and/or kV adjustment per patient size (includes targeted exams where dose is matched to clinical indication); or iterative reconstruction. Contrast material: ISOVUE; Contrast volume: 75 ml; Contrast route: IV; REPORTING DATA: Count of CT and Cardiac NM exams in prior 12 months: This patient has received 3 known CTs and 0 known cardiac nuclear medicine studies in the 12 months prior to the current study. COMPARISON: CR XR PELVIS 1-2V 05/23/2022 5:06 AM FINDINGS: Liver: Normal. No mass. Gallbladder and bile ducts: Normal. No calcified stones. No ductal dilation. Pancreas: Normal. No ductal dilation. Spleen: Normal. No splenomegaly. Adrenal glands: Normal. No mass. Kidneys and ureters: Normal. No hydronephrosis. Stomach and bowel: Unremarkable. No obstruction. No mucosal thickening. Appendix: No evidence of appendicitis. Intraperitoneal space: Unremarkable. No free air. No significant fluid collection. Vasculature: Unremarkable. No abdominal aortic aneurysm. Lymph nodes: Unremarkable. No enlarged lymph nodes. Urinary bladder: Unremarkable as visualized. Reproductive: Unremarkable as visualized. Bones/joints: Unremarkable. No acute fracture. Soft tissues: Unremarkable. IMPRESSION: No acute findings.
--- NOTE | 2022-05-23 04:44 | CT_ITS ---
PROCEDURE INFORMATION: Exam: CT Cervical Spine Without Contrast Exam date and time: 05/23/2022 4:57 AM Age: 47 years old Clinical indication: Injury or trauma; Fall; Additional info: Fall, pain TECHNIQUE: Imaging protocol: Computed tomography of the cervical spine without contrast. Radiation optimization: All CT scans at this facility use at least one of these dose optimization techniques: automated exposure control; mA and/or kV adjustment per patient size (includes targeted exams where dose is matched to clinical indication); or iterative reconstruction. REPORTING DATA: Count of CT and Cardiac NM exams in prior 12 months: This patient has received 3 known CTs and 0 known cardiac nuclear medicine studies in the 12 months prior to the current study. COMPARISON: MR HEAD/BRAIN WO CON 06/25/2020 1:52 PM FINDINGS: Bones/joints: No acute fracture. Normal alignment. No significant disc bulge or herniation. No severe spinal canal stenosis. No significant neural foraminal narrowing. Lungs: Lung apices are normal. Soft tissues: Unremarkable. IMPRESSION: No acute findings.
--- NOTE | 2022-05-23 04:44 | XR_ITS ---
PROCEDURE INFORMATION: Exam: XR Chest Exam date and time: 05/23/2022 5:06 AM Age: 47 years old Clinical indication: Pain; Right-sided; Additional info: Fall, pain right posterior TECHNIQUE: Imaging protocol: Radiologic exam of the chest. Views: 1 view. COMPARISON: CR XR CHEST 2V 06/10/2020 7:10 PM FINDINGS: Lungs: Unremarkable. No consolidation. Pleural spaces: Unremarkable. No pleural effusion. No pneumothorax. Heart/Mediastinum: Unremarkable. No cardiomegaly. Bones/joints: Unremarkable. IMPRESSION: No acute findings.
[2022-05-23 04:52] LABS: Basophils # 0.2 K/mm3 (0-0.2); Basophils % 1.7 % (0.1-2.0); Eosinophils # 0.3 K/mm3 (0.0-0.4); Eosinophils % 2.6 % (0.1-12.0); Hematocrit 53.5 % (42.0-52.0); Lymphocytes # 3.9 K/mm3 (0.7-4.5); Lymphocytes % 36.1 % (10-50); Mean Corpuscular HGB Conc 31.8 g/dL (31.8-35.4); Mean Corpuscular Hemoglobin 32.1 pg (27.0-31.2); Mean Platelet Volume 7.6 fl (7.4-10.4); Monocytes # 0.7 K/mm3 (0.1-1.0); Monocytes % 6.5 % (1.7-9.3); Neutrophils # 5.8 K/mm3 (1.8-7.8); Platelet Count 292 K/mm3 (142-424); Red Cell Distribution Width 13.6 % (11.5-17.5); White Blood Count 10.9 K/mm3 (4.8-10.8)
--- NOTE | 2022-05-23 04:55 | HMH.EDBACK ---
Discharge Plan Disposition Patient Disposition: Home, Self-Care Chief Complaint: Back Pain/Injury Prescriptions Prescriptions: No Action Ajovy Autoinjector 225 mg/1.5 mL auto-injector 225 mg SQ QMONTH Qty: 1.5 5RF naproxen [Naprosyn] 500 mg tablet 500 mg PO BID Qty: 60 2RF methylprednisolone [Medrol (Bishnu)] 4 mg tablets,dose pack See Rx Instructions PO PER PKG DIR Qty: 21 0RF Rx Instructions: PO PER PKG DIR cholecalciferol (vitamin D3) 25 mcg (1,000 unit) capsule 25 mcg PO DAILY Qty: 90 3RF cholecalciferol (vitamin D3) 1,250 mcg (50,000 unit) capsule 1,250 mcg PO WEEKLY Qty: 14 3RF Referrals Follow up/Referrals: Ashley Hutchinson PA [Primary Care Provider] - See instructions Clinical Impressions Clinical Impression: Closed rib fracture, Elevated amylase and lipase Instructions Patient Instructions: DI for Rib Fracture Discharge ED Provider: Yimi (ED)Mohan Back Pain HPI General Chief Complaint: Back Pain/Injury Stated Complaint: 05/20/22 pain in back fell Time Seen by Provider: 05/23/22 04:55 Mode of Arrival: Family Vehicle Source of Information: Patient, Spouse and Medical Record Limitations: No Limitations Description of Symptoms (Recalled from ER Triage Doc. by RN): Pt c/o severe mid & right back with SOA and pain with deep inspiration. states pt was in a car all day long and awoke 0400 in severe pain and pain with inspiration. States 2-3 days ago he slipped in wet grass and fell down on his back side . Pt took tylenol & motrin @ 12am. History of Present Illness HPI Narrative: fall with rt rib pain and inc pain as pt fell a couple of days ago - pt has increased pain more with insp - no abd pain - no etoh MD Complaint: fall Onset (ago): day(s) Duration: constant Similar Symptoms Previously: No Severity: moderate Related Data Previous Rx's Medication Instructions Recorded cholecalciferol (vitamin D3) 1,250 1,250 mcg PO WEEKLY #14 caps 05/06/21 mcg (50,000 unit) capsule cholecalciferol (vitamin D3) 25 25 mcg PO DAILY #90 caps 22 mcg (1,000 unit) capsule fremanezumab-vfrm 225 mg/1.5 mL 225 mg (1.5 mL) SQ QMONTH migraine 10/12/21 subcutaneous auto-injector (Ajovy) prevention #1.5 mL methylprednisolone 4 mg tablets in See Rx Instructions PO PER PKG DIR 03/11/22 a dose pack (Medrol (Bishnu)) #21 tabs naproxen 500 mg tablet (Naprosyn) 500 mg PO BID #60 tabs 03/11/22 Allergies Allergy/AdvReac Type Severity Reaction Status Date / Time Penicillins [PENICILLINS] Allergy Severe THROAT Verified 04/08/22 13:32 SWELLING PFSH [facility] Disclaimer: The information contained in this section may have been updated after the patient was seen, as this information can be updated by other users. Medical History Abscess of buttock, left Bipolar II disorder Fatigue Social History Smoking Status: Current every day smoker tobacco type: cigarettes packs per day: 2 second hand exposure: No alcohol intake: never substance use type: denies use and marijuana current occupational status: other Travel in the last 8 weeks: None household members: spouse and children housing: house number of children: 2 ROS Obtained: Yes All systems reviewed & no additional complaints except as documented Physical Exam General General appearance: alert Head Head exam: normocephalic Eye Eye exam: Present PERRL and EOMI ENT ENT exam: Present mucous membranes moist Neck Neck exam: Present trachea midline; Absent tenderness Chest Chest inspection: Present tenderness Respiratory Respiratory exam: Present other (dec bs on rt ); Absent respiratory distress Cardiovascular Cardiovascular exam: Present regular rate; Absent systolic murmur Abdominal Exam Abdominal exam: Present soft; Absent tenderness, guarding or rebound Extremities Exam Extremities exam: Pres
[2022-05-23 04:57] LABS: Alanine Aminotransferase 43 U/L (12-78); Albumin Level 4.2 g/dl (3.5-5.0); Alkaline Phosphatase 73 U/L (38-126); Amylase 198 U/L (30-110); Anion Gap 9.1 mEq/L (5-15); Aspartate Amino Transferase 36 U/L (17-59); Bilirubin,Indirect 0.5 mg/dL (0.0-0.9); Bilirubin,Total 0.5 mg/dl (0.2-1.3); Bilirubin,Unconjugated 0.5 mg/dL (0.0-1.1); Blood Urea Nitrogen 17 mg/dl (9-20); Calcium 8.9 mg/dl (8.4-10.2); Carbon Dioxide 30 mmol/L (22.0-30.0); Chloride 104 mmol/L (98-107); Creatinine Clearance Estimated 122 mL/min (50-200); Estimated Glomerular Filt Rate 65 ml/min (>60); GFR (African American) 79 ML/MIN (>60); Glucose 91 mg/dl (74-100); Lipase 1253 U/L (23-300); Potassium 4.1 mmoL/L (3.5-5.1); Sodium 139 mmol/L (136-145)
[2022-05-23 05:30] VITALS: BP 112/79; PULSE 61; O2SAT 99
[2022-05-23 06:00] VITALS: BP 96/62; PULSE 62; RESP 16; O2SAT 96
[2022-05-23 06:31] VITALS: BP 114/76; PULSE 61; O2SAT 96
[2022-05-23 07:00] VITALS: BP 112/81; PULSE 60; O2SAT 97
--- NOTE | 2022-05-23 07:18 | PC.NURSE ---
Dr. Geller asked to page on-call surgery (Dr. Torre)
[2022-05-23 07:45] VITALS: BP 114/72; PULSE 57; RESP 14; TEMP 36.6; O2SAT 96
== END 2022-05-23 07:52 | disposition home or self-care (01) ==
PROVIDERS: Emergency Provider Emergency Medicine; PCP Physician Assistant
DX: S22.31XA Fracture of one rib, right side, initial encounter for closed fracture (principal); W01.0XXA Fall on same level from slipping, tripping and stumbling without subsequent striking against object, initial encounter
CPT/HCPCS: 71045; 71260; 72125; 72128; 72170; 74177; 80048; 80076; 82150; 83690; 85025; 96374; 96375; 99285; J2405; Q9967

== ENCOUNTER → 2022-05-24 10:26 | Outpatient (CLI) | payer MEDICAID, SELFPAY ==
[2022-05-24 15:01] LABS: Basophils % 0.4 % (0.1-2.0); Eosinophils # 0.1 K/mm3 (0.0-0.4); Eosinophils % 0.9 % (0.1-12.0); Hematocrit 49.7 % (42.0-52.0); Hemoglobin 15.8 g/dL (14.1-18.0); Lymphocytes # 1.9 K/mm3 (0.7-4.5); Lymphocytes % 17.8 % (10-50); Mean Corpuscular HGB Conc 31.9 g/dL (31.8-35.4); Mean Corpuscular Volume 100.3 fl (80-94); Mean Platelet Volume 8.2 fl (7.4-10.4); Monocytes # 0.6 K/mm3 (0.1-1.0); Monocytes % 5.8 % (1.7-9.3); Neutrophils # 8.1 K/mm3 (1.8-7.8); Neutrophils % 75.2 % (37.0-80.0); Platelet Count 249 K/mm3 (142-424); Red Blood Count 4.95 M/mm3 (4.60-6.20); Red Cell Distribution Width 13.7 % (11.5-17.5); White Blood Count 10.7 K/mm3 (4.8-10.8)
[2022-05-24 15:20] LABS: Amylase 96 U/L (30-110); Cholesterol 121 mg/dl (140-200); HDL Cholesterol 41 mg/dl (40-60); Lipase 74 U/L (23-300); Triglycerides 48 mg/dl (30-150); VLDL Cholesterol 10 mg/dL (0-40)
[2022-05-24 15:35] LABS: Direct LDL Cholesterol 81.14 mg/dL (100-129)
== END ==
PROVIDERS: PCP Emergency Medicine; Visit Provider Emergency Medicine
DX: R10.9 Unspecified abdominal pain (principal); R74.8 Abnormal levels of other serum enzymes
CPT/HCPCS: 80061; 82150; 83690; 85025

== ENCOUNTER 2022-10-17 17:08 | Emergency (ER) | payer MEDICAID, SELFPAY ==
[2022-10-17 17:08] VITALS: BP 158/89; PULSE 80; RESP 18; TEMP 36.8; O2SAT 98; BMI 31.5
--- NOTE | 2022-10-17 17:08 | ECG_ITS ---
APPROVED REPORT Exam: Resting ECG HR:71 bpm ECG Measurements Heart Rate 71 AXES WV 117 P 50 QRSd 99 QRS -24 QT 352 T 60 QTc 375 Conclusion SINUS RHYTHM WITH SHORT WV INTERVAL BORDERLINE LEFT AXIS DEVIATION [QRS AXIS < -20] BORDERLINE ECG UNCONFIRMED REPORT Electronically signed by : Jimmie Fonseca MD 10/19/2022 17:24:10
--- NOTE | 2022-10-17 17:16 | XR_ITS ---
PROCEDURE INFORMATION: Exam: XR Chest Exam date and time: 10/17/2022 5:52 PM Age: 47 years old Clinical indication: Cough TECHNIQUE: Imaging protocol: Radiologic exam of the chest. Views: 2 views. COMPARISON: 1. CT ABDOMEN PELVIS W CON 05/23/2022 5:[address] CHEST W CON 05/23/2022 5:08 AM FINDINGS: Lungs: Unremarkable. No consolidation. Pleural spaces: Unremarkable. No pleural effusion. No pneumothorax. Heart/Mediastinum: Unremarkable. No cardiomegaly. Bones/joints: Mild compression deformity of the upper lumbar spine anteriorly is chronic and unchanged with comparison CT. IMPRESSION: No acute findings.
--- NOTE | 2022-10-17 17:19 | PC.NURSE ---
Dr. Valdez at [facility]
[2022-10-17 17:20] LABS: Coronavirus 19, PCR Not Detected (NotDetected); Influenza A, PCR Not Detected (NotDetected); Influenza B, PCR Not Detected (NotDetected)
[2022-10-17 17:21] VITALS: PULSE 80
--- NOTE | 2022-10-17 17:26 | HMH.EDGENADL ---
Discharge Plan Disposition Patient Disposition: Home, Self-Care Condition: Good Prescriptions Prescriptions: New doxycycline hyclate 100 mg tablet 100 mg PO BID 14 Days Qty: 28 0RF prednisone 50 mg tablet 50 mg PO DAILY 7 Days Qty: 7 0RF No Action Ajovy Autoinjector 225 mg/1.5 mL auto-injector 225 mg SQ QMONTH hydrocodone-acetaminophen 5-325 mg tablet 1 tab PO TID PRN (Reason: pain) Qty: 30 0RF Referrals Follow up/Referrals: Ashley Hutchinson PA [Primary Care Provider] - See instructions Activity Restrictions/Add. Instructions Additional Instructions/Restrictions: You were evaluated in the emergency department today. Please garbage pick up man your prescriptions at the pharmacy and take the full course as prescribed. Use your inhaler at home every 4 hours as needed for wheezing. Follow-up with your primary care provider over the next 3 days for reassessment to ensure that you are still doing well. Return to the emergency department for new or worsening symptoms. Clinical Impressions Clinical Impression: Pneumonia, Bilateral wheezing Instructions Patient Instructions: DI for Pneumonia -- Adult Discharge ED Provider: Carolyn Valdez General Adult HPI General Chief complaint: Chest Pain Stated complaint: chest pain Time Seen by Provider: 10/17/22 17:11 Mode of Arrival: Ambulatory Source of Information: Patient Limitations: No Limitations Description of Symptoms (Recalled from ER Triage Doc. by RN): Pt stated that chest pain started about 30 mins ago. Chest pain is radiating down left arm described it as water going down arm . Pt stated that he has been feeling sick for a week with coughing, congestion, and SOB. History of Present Illness HPI narrative: This patient is a 47-year-old male with a history of obesity, ABHIJIT, and tobacco use disorder presented to the emergency department for evaluation with concern for over 1 week of cough, wheezing, and profuse watery diarrhea. He has been in bed most of the week and has not been able to get up and do things. Approximate 30 minutes ago, he had onset of tightness in his chest radiating down his left arm. He denies any associated shortness of breath, abdominal pain, nausea, vomiting, Swelling, or other concerns. No history of blood clots or clotting disorders. Related Data Home Medications Medication Instructions Recorded Confirmed fremanezumab-vfrm 225 mg/1.5 mL 225 mg SQ QMONTH 05/24/22 05/24/22 subcutaneous auto-injector (Ajovy) Previous Rx's Medication Instructions Recorded hydrocodone 5 mg-acetaminophen 325 1 tab PO TID PRN pain #30 tabs 05/24/22 mg tablet doxycycline hyclate 100 mg tablet 100 mg PO BID 14 days #28 tabs 10/17/22 prednisone 50 mg tablet 50 mg PO DAILY 7 days #7 tabs 10/17/22 Allergies Allergy/AdvReac Type Severity Reaction Status Date / Time Penicillins [PENICILLINS] Allergy Severe THROAT Verified 05/24/22 09:57 SWELLING PFSH [facility] Disclaimer: The information contained in this section may have been updated after the patient was seen, as this information can be updated by other users. Medical History Abscess of buttock, left Bipolar II disorder Fatigue Social History Smoking Status: Current every day smoker tobacco type: cigarettes packs per day: 2 second hand exposure: No alcohol intake: never substance use type: denies use and marijuana current occupational status: other Travel in the last 8 weeks: None household members: spouse and children housing: house number of children: 2 ROS Obtained: Yes All systems reviewed & no additional complaints except as documented Physical Exam General General appearance: alert and in no apparent distress Head Head exam: atraumatic and normocephalic Eye Eye exam: Present normal appearance, PERRL and EOMI ENT ENT exam: Present n
[2022-10-17 17:30] VITALS: BP 156/96; PULSE 60; RESP 9; O2SAT 97
[2022-10-17 17:31] LABS: Basophils % 0.3 % (0.1-2.0); Eosinophils # 0.2 K/mm3 (0.0-0.4); Eosinophils % 1.8 % (0.1-12.0); Hemoglobin 17.1 g/dL (14.1-18.0); Lymphocytes % 37.2 % (10-50); Mean Corpuscular HGB Conc 33.5 g/dL (31.8-35.4); Mean Corpuscular Hemoglobin 32.5 pg (27.0-31.2); Mean Platelet Volume 8.2 fl (7.4-10.4); Monocytes # 0.4 K/mm3 (0.1-1.0); Monocytes % 5.5 % (1.7-9.3); Neutrophils # 4.5 K/mm3 (1.8-7.8); Neutrophils % 55.2 % (37.0-80.0); Platelet Count 248 K/mm3 (142-424); Red Blood Count 5.26 M/mm3 (4.60-6.20); Red Cell Distribution Width 13.3 % (11.5-17.5); White Blood Count 8.1 K/mm3 (4.8-10.8)
[2022-10-17 17:34] LABS: Alanine Aminotransferase 40 U/L (12-78); Albumin Level 4.2 g/dl (3.5-5.0); Albumin/Globulin Ratio 1.3 (1.1-1.8); Alkaline Phosphatase 82 U/L (38-126); Anion Gap 14.6 mEq/L (5-15); Aspartate Amino Transferase 36 U/L (17-59); Bilirubin,Total 0.3 mg/dl (0.2-1.3); Blood Urea Nitrogen 13 mg/dl (9-20); Carbon Dioxide 24 mmol/L (22.0-30.0); Chloride 105 mmol/L (98-107); Creatinine Clearance Estimated 129 mL/min (50-200); Estimated Glomerular Filt Rate 80 ml/min (>60); GFR (African American) 97 ML/MIN (>60); Globulin 3.2 g/dL (1.3-3.2); Glucose 99 mg/dl (74-100); Potassium 3.6 mmoL/L (3.5-5.1); Sodium 140 mmol/L (136-145); Total Protein,Serum 7.4 g/dl (6.3-8.2)
[2022-10-17 17:48] LABS: Troponin I < 0.01 ng/ml (0.00-0.034)
--- NOTE | 2022-10-17 18:06 | PC.NURSE ---
pt return from xray, at [facility]
[2022-10-17 18:07] VITALS: BP 112/70; PULSE 50; RESP 13; O2SAT 97
[2022-10-17 18:30] VITALS: BP 117/71; PULSE 54; RESP 18; O2SAT 97
--- NOTE | 2022-10-17 18:41 | PC.NURSE ---
notified Dr. Valdez pt HR running in the mid 50s 52-56
--- NOTE | 2022-10-17 19:31 | PC.NURSE ---
Collected second trop and sent to LAB. Notified lab to run trop at this time per Dr. Valdez.
--- NOTE | 2022-10-17 19:44 | PC.NURSE ---
Dr. Valdez at [facility] to update pt
[2022-10-17 20:01] LABS: Troponin I < 0.01 ng/ml (0.00-0.034)
--- NOTE | 2022-10-17 20:01 | PC.NURSE ---
called resp to administer MDI and for training
[2022-10-17 20:18] VITALS: BP 165/102; PULSE 60; RESP 16; TEMP 36.6; O2SAT 97
== END 2022-10-17 20:18 | disposition home or self-care (01) ==
PROVIDERS: Emergency Provider Emergency Medicine; PCP Physician Assistant
DX: R07.9 Chest pain, unspecified (principal); J18.9 Pneumonia, unspecified organism; M79.602 Pain in left arm; R06.02 Shortness of breath; R19.7 Diarrhea, unspecified; G47.33 Obstructive sleep apnea (adult) (pediatric); E66.9 Obesity, unspecified; F31.81 Bipolar II disorder; F17.210 Nicotine dependence, cigarettes, uncomplicated
CPT/HCPCS: 71046; 80053; 84484; 85025; 87636; 93005; 96361; 96374; 99285

== ENCOUNTER 2023-11-22 14:36 | Outpatient (CLI) | payer MEDICAID, SELFPAY ==
[2023-11-22 22:52] LABS: Basophils # 0.1 K/mm3 (0-0.2); Basophils % 0.7 % (0.1-2.0); Eosinophils # 0.1 K/mm3 (0.0-0.4); Eosinophils % 0.9 % (0.1-12.0); Lymphocytes % 26.8 % (10-50); Mean Corpuscular HGB Conc 32.8 g/dL (31.8-35.4); Mean Corpuscular Hemoglobin 34.1 pg (27.0-31.2); Monocytes # 0.4 K/mm3 (0.1-1.0); Monocytes % 5.5 % (1.7-9.3); Neutrophils # 4.9 K/mm3 (1.8-7.8); Platelet Count 242 K/mm3 (142-424); Red Blood Count 5.29 M/mm3 (4.60-6.20); Red Cell Distribution Width 14.1 % (11.5-17.5); White Blood Count 7.4 K/mm3 (4.8-10.8)
[2023-11-22 23:25] LABS: Alanine Aminotransferase 39 U/L (12-78); Albumin Level 4.9 g/dl (3.5-5.0); Albumin/Globulin Ratio 1.6 (1.1-1.8); Alkaline Phosphatase 86 U/L (38-126); Anion Gap 13.7 mEq/L (5-15); Aspartate Amino Transferase 41 U/L (17-59); Bilirubin,Total 0.8 mg/dl (0.2-1.3); Blood Urea Nitrogen 11 mg/dl (9-20); Calcium 9.9 mg/dl (8.4-10.2); Carbon Dioxide 25 mmol/L (22.0-30.0); Chloride 102 mmol/L (98-107); Chol/HDL Ratio 3.3 (1-3.5); Cholesterol 165 mg/dl (140-200); Estimated Glomerular Filt Rate 80 ml/min (>60); GFR (African American) 97 ML/MIN (>60); Globulin 3.1 g/dL (1.3-3.2); Glucose 76 mg/dl (74-100); HDL Cholesterol 50 mg/dl (40-60); Potassium 3.7 mmoL/L (3.5-5.1); Sodium 137 mmol/L (136-145); Triglycerides 72 mg/dl (30-150); VLDL Cholesterol 14 mg/dL (0-40)
[2023-11-22 23:27] LABS: Hemoglobin 18.1 g/dL (14.1-18.0)
[2023-11-22 23:36] LABS: Direct LDL Cholesterol 99.73 mg/dL (100-129)
[2023-11-22 23:40] LABS: 25-OH Vitamin D, Total 53.7 ng/mL (30-100)
[2023-11-22 23:54] LABS: Thyroid Stimulating Hormone 0.93 uIU/mL (0.465-4.68)
== END 2023-11-22 23:59 | disposition home or self-care (01) ==
LOC: LAB.DROPOF 11-23 11:15
PROVIDERS: PCP Nurse Practitioner Family; Visit Provider Nurse Practitioner Family
DX: R53.83 Other fatigue (principal)
CPT/HCPCS: 80050; 80053; 80061; 82306; 84443; 85025

== ENCOUNTER 2024-04-25 09:24 | Outpatient (CLI) | payer MEDICAID, SELFPAY ==
[2024-04-25 16:16] LABS: Coronavirus 19, PCR Not Detected (NotDetected); Human Rhinovirus Not Detected (NotDetected); Influenza A, PCR Not Detected (NotDetected); Influenza B, PCR Not Detected (NotDetected); Respiratory Syncytial Virus Not Detected (NotDetected)
== END 2024-04-25 23:59 | disposition home or self-care (01) ==
LOC: LAB.DROPOF 04-26 15:24
PROVIDERS: PCP Nurse Practitioner; Visit Provider Nurse Practitioner
DX: R05.9 Cough, unspecified (principal); J02.9 Acute pharyngitis, unspecified
CPT/HCPCS: 87631